=== PATIENT | female | born 1960 | race Caucasian/White ===

== ENCOUNTER 2019-08-24 15:17 | Outpatient (CLI) | payer BC, OTHER ==
--- NOTE | 2019-08-24 15:36 | RAD ---
2 views of the chest: 08/24/2019 COMPARISON: None HISTORY: Lung empyema FINDINGS: No comparison imaging is available. There is lateral right-sided pleural thickening involvi ng the mid right hemithorax and the right lung base with blunting of the costophrenic angle. There is also nonspecific increased density within the medial aspect of the right lung base and right infra hilar region. Right perihilar mass cannot be excluded. The left lung is clear. No pneumothorax is seen. Clips in the right upper quadrant suggest prior cholecystectomy. IMPRESSION: Increased density in the right perihilar region/infrahilar region, nonspecific. Pleural t hickening in the right hemithorax. Findings are consistent with the patient's history of empyema but are not well assessed on this examination, particularly without comparison imaging. Follow-up [facility] radiograph and/or CT examination at this time may be beneficial.
== END 2019-08-24 15:18 | disposition home or self-care (01) ==
LOC: RAD 15:17
PROVIDERS: ATTEND Thoracic Surgery (Cardiothoracic Vascular Surgery)
DX: J86.9 Pyothorax without fistula (principal)
CPT/HCPCS: 71046